=== PATIENT | female | born 2000 | race Caucasian/White ===

== ENCOUNTER 2021-08-10 11:28 | Emergency (ER) | payer BC ==
[~2021-08-10] VITALS: Ht 170.2 cm; Wt 56.8 kg
[2021-08-10 11:59] VITALS: BP 109/61; PULSE 88; TEMP 98.1
== END 2021-08-10 11:59 | disposition home or self-care (01) ==
LOC: COL.ER 11:28
DX: T78.40XA Allergy, unspecified, initial encounter (principal)

== ENCOUNTER 2021-12-24 01:14 | Emergency (ER) | payer BC ==
[~2021-12-24] VITALS: Ht 172.7 cm; Wt 56.8 kg
[2021-12-24 01:19] VITALS: TEMP 97.1
[2021-12-24 01:54] LABS: BASO # 0.1 K/mm3 (0.0-0.2); BASO % 0.5 % (0.0-2.0); EOS # 0.2 K/mm3 (0.0-0.7); EOS % 2.1 % (0.0-4.0); GRAN # 4.2 K/mm3 (1.4-6.5); GRAN % 44.2 % (42.2-75.2); HEMATOCRIT 42.5 % (37.0-47.0); HEMOGLOBIN 14.4 g/dl (12.5-16.0); LYMPH # 4.4 K/mm3 (1.2-3.4); LYMPH % 46.4 % (20.0-51.0); MEAN CELL VOLUME 86 fl (80.0-100.0); MEAN CORPUSCULAR HEMOGLOBIN 29 pg (27-31); MEAN CORPUSCULAR HGB CONC 34 g/dl (33.0-37.0); MEAN PLATELET VOLUME 9.3 fl (7.4-10.4); MONO # 0.6 K/mm3 (0.1-0.6); MONO % 6.6 % (1.7-9.3); PLATELET COUNT 311 K/mm3 (130-400); RED BLOOD COUNT 4.93 M/mm3 (4.10-5.30); REDCELL DISTRIBUTION WIDTH-CV 12.3 % (11.5-14.5)
[2021-12-24 02:10] LABS: ALBUMIN 4.2 gm/dL (3.5-5.0); BILIRUBIN,TOTAL 0.5 mg/dL (0.2-1.2); CALCIUM 9.1 mg/dL (8.4-10.2); CREATININE, serum 0.81 mg/dL (0.57-1.11)
[2021-12-24] MEDS ORDERED: ZOFRAN ODT4 MG PO (02:31)
[2021-12-24 03:24] VITALS: BP 120/71; PULSE 90
== END 2021-12-24 03:24 | disposition home or self-care (01) ==
LOC: COL.ER 01:14
PROVIDERS: Personal Emergency Response Attendant
DX: F10.129 Alcohol abuse with intoxication, unspecified (principal)
CPT/HCPCS: J2405; J7030